=== PATIENT | female | born 2000 | race Caucasian/White ===

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

== ENCOUNTER 2021-01-02 01:52 | Emergency (ER) | payer MEDICAID, SELFPAY ==
[2021-01-02 01:53] VITALS: BP 111/66; PULSE 87; RESP 17; TEMP 35.8; O2SAT 100; BMI 33.0
--- NOTE | 2021-01-02 02:14 | EKG12_ITS ---
Test Reason : DYSRHYTHMIA Blood Pressure : / mmHG Vent. Rate : 080 BPM Atrial Rate : 080 BPM P-R Int : 150 ms QRS Dur : 094 ms QT Int : 394 ms P-R-T Axes : 052 031 031 degrees QTc Int : 454 ms Normal sinus rhythm with sinus arrhythmia Normal ECG Confirmed by THIEN ROUSSEAU, KATHLEEN ([id number]), general expeditor PAVITHRA FLOREZ ([id number]) on 01/05/2021 8:43:46 AM Referred By: DARRIUS Confirmed By:KATHLEEN NEUMANN MD
--- NOTE | 2021-01-02 02:42 | EDS_ITS ---
HPI History of Present Illness Chief Complaint: Syncope Informant: patient Onset/Context/Timing Onset: Today Narrative Narrative: Patient presents with an unresponsive episode that she is not sure whether it was syncope or seizure. Patient states that she was at a friend's house. She was getting ready to leave. As they were leaving the home she started to feel that she was going to pass out. She leaned against a wall but then fell to the ground. She states she can hear muffled voices when this happens. She often will have shaking in her left arm. She states as soon as she comes to she is able to tell people around her that she knows what happened and she just needs a minute to recover. She reportedly has had for 5 episodes of syncope over the past year or 2. She states they do seem to be getting more frequent. She does report that her biological father had a heart condition that required him to have a pacemaker defibrillator. She states she did wear a monitor and had an echocardiogram when she was 17 or so. She has not talked to her doctor since she started having more frequent syncopal episodes. PFSH PFSH Medical History no medical history no medical history Home Medications cholecalciferol (vitamin D3) 1,000 unit PO DAILY 07/24/19 [History Last Taken Unknown] Allergy/AdvReac Type Severity Reaction Status Date / Time horse dander Allergy Swelling Verified 01/02/21 01:53 Social History Smoking Status: Current every day smoker tobacco type: e-cigarettes ROS ROS ED Constitutional Constitutional ED: Denies chills or fever(s) Eyes Eyes: Denies change in vision ENT ENT ED: Denies sore throat Cardiovascular Cardiovascular: Denies chest pain, palpitations or racing heartbeat Respiratory/Chest Respiratory/Chest: Denies cough or dyspnea Gastrointestinal Gastrointestinal: Denies abdominal pain, diarrhea, nausea or vomiting Genitourinary Genitourinary ED: Denies dysuria Musculoskeletal Musculoskeletal: Denies back pain Integumentary Denies rash Neurologic Neurologic: Denies headache(s) or weakness Allergic/Immunologic Allergic/Immunologic ED: Denies urticaria EXAM Physical Exam Const Vital Signs: 01/02/21 01:53 Temperature 96.5 F L Temperature Source Temporal Pulse Rate 87 Respiratory Rate 17 Blood Pressure 111/66 Blood Pressure Mean 81 Pulse Ox 100 Oxygen Delivery Method Room Air Positive well nourished and well developed General Appearance ED: well developed HEENT Reports normocephalic and head/scalp atraumatic Eyes PERRL and EOMs intact bilaterally Neck supple Chest Wall inspection of chest normal and palpation of chest normal Resp normal respiratory effort and clear to auscultation bilaterally Cardio regular rate and regular rhythm GI normal to inspection, nondistended, normoactive bowel sounds Palpation: soft Extremity normal to inspection Neuro oriented x3 and no sensory deficits noted Sensorium / Orientation: alert Motor Exam: strength 5/5 throughout Psych mental status grossly normal Skin no rashes or lesions noted MDM MDM MDM Narrative Medical decision making narrative: Lab work, EKG, head CT ordered. Lab Data Attestation: I reviewed the patient's lab results. Labs: Laboratory Results - last 24 hr 01/02/21 01/02/21 01/02/21 03:05 03:05 03:05 WBC 9.6 RBC 4.83 Hgb 14.4 Hct 42.6 MCV 88.2 MCH 29.8 MCHC 33.8 RDW Std Deviation 39.5 RDW Coeff of Leila 12.2 Plt Count 229 MPV 10.5 Immature Gran % (Auto) 0.300 Neut % (Auto) 76.5 H Lymph % (Auto) 16.1 L Churchill % (Auto) 6.6 Eos % (Auto) 0.3 Baso % (Auto) 0.2 Absolute Neuts (auto) 7.3 Absolute Lymphs (auto) 1.54 Nucleated RBC % 0 Sodium 140 Potassium 3.3 L Chloride 107 Carbon Dioxide 26.0 Anion Gap 7 BUN 10 Creatinine 0.91 Estim Creat Clear Calc 95.90 Est GFR (MDRD) Af Amer 101 Est GFR (MDRD) Non-Af 83 BUN/Creatinine Ratio 11.0 Glucose 100 Calcium 8.8 Serum , Qual NEGATIVE Radiography Diagnostic Testing: Clinical Impression(s) from Imaging Studies Brain CT 01/02/21 02:50 IMPRESSION: No CT evidence of acute intracranial hemorrhage or injury. Individualized dose optimization techniques were used for this CT. at 0329 Reported and signed by: Jacky Rosado MD Electronically Signed: Jacky Rosado MD at 3:28 EDT Tel , Service support , EKG Initial EKG: Attestation: I personally reviewed and interpreted this EKG as follows: Interpretation: Sinus Rhythm (Sinus at 80 with sinus arrhythmia. No acute ST change.) Treatment and Re-Evaluation Comments:: Repeat evaluation patient resting comfortably. No further symptoms while the emergency room. Patient's lab work reviewed with her and potassium slightly low. This will be replaced orally here. Head CT unremarkable. EKG normal. I did discuss with her following up with her primary care physician for probable repeat Holter monitor and echocardiogram given her family history. She voices understanding and agreement. Return instructions provided. Discharge Plan Triage Chief Complaint: Syncope Other Complaint: Seizure ED Provider: Rosa Loera Dx/Rx/DC Orders Clinical Impression: Syncope Instructions: ED Fainting, Uncertain Cause Prescriptions: No Action cholecalciferol (vitamin D3) 1,000 UNIT tablet 1,000 unit PO DAILY RF: 0 Primary Care Provider: Briana Hicks Referrals: Briana Hicks MD [Primary Care Provider] - As soon as possible Disposition Disposition: Home, Self Care
--- NOTE | 2021-01-02 02:50 | CT_ITS ---
HISTORY: syncope TECHNIQUE: Multiple axial images were obtained of the brain without intravenous contrast. Coronal and sagittal reformats obtained. Bone algorithm axial images obtained. A radiation dose optimization technique was used for this scan. COMPARISON: None FINDINGS: # of images incl. paperwork: 240 Metallic nasal device noted. HEMORRHAGE: No evidence of acute intracranial hemorrhage. CEREBRAL PARENCHYMA: --Volume: Unremarkable for age. --White matter: Unremarkable. --Mass: No evidence of intracranial mass. --Stroke: Barraza-white matter differentiation is preserved. VENTRICULAR SYSTEM: No hydrocephalus. MASS EFFECT: No midline shift or focal sulci effacement. Basal cisterns are preserved. SCALP: No large scalp hematoma. CALVARIUM/SKULL BASE: No fracture. PARANASAL SINUSES: Clear. MASTOID AIR CELLS: Clear. ORBITS: Imaged portions are unremarkable. ASPECTS acute stroke score: 10 CT/Brain/Head without Contrast IMPRESSION: No CT evidence of acute intracranial hemorrhage or injury. Individualized dose optimization techniques were used for this CT. at 0329 Reported and signed by: Jacky Rosado MD Electronically Signed: Jacky Rosado MD at 3:28 EDT Tel , Service support ,
[2021-01-02 03:14] LABS: Absolute Lymphocyte Count 1.54 X10^3/uL (0.83-4.51); Absolute Neutrophil Count 7.3 X10^3/uL (2.0-7.7); Basophil# 0.02 X10^3/uL; Basophil% 0.2 % (0-1); Eosinophil# 0.03 X10^3/uL; Eosinophils% 0.3 % (0-5); Hematocrit 42.6 % (37-47); Hemoglobin 14.4 g/dL (12.0-15.0); Lymphocyte # 1.54 X10^3/ul (0.83-4.51); Lymphocyte % 16.1 % (19-41); Mean Corp Hgb Conc 33.8 g/dL (32-36); Mean Corpuscular Hgb 29.8 pg (27.0-32.0); Mean Corpuscular Volume 88.2 fL (81-99); Mean Platelet Vol. 10.5 fl (6.2-12.0); Monocyte# 0.63 X10^3/uL; Monocyte% 6.6 % (0-10); NRBC Flagged by Analyzer 0 % (0-5); Neutrophil # 7.32 X10^3/uL (2.7-7.7); Neutrophil % 76.5 % (47-70); Platelet Count 229 K/mm3 (150-450); RBC Distribution Width CV 12.2 % (11.6-14.6); RBC Distribution Width SD 39.5 fl (35.1-43.9); Red Blood Count 4.83 M/mm3 (4.2-5.4); White Blood Count 9.6 K/mm3 (4.4-11.0)
[2021-01-02 03:35] LABS: Internal QC Validated? YES +Cl - CLEAR BKGD; Pregnancy, Serum, hCG Quali. NEGATIVE Negative
[2021-01-02 03:37] LABS: Anion Gap 7 (5-15); BUN 10 mg/dL (7-18); Calcium,Total 8.8 mg/dL (8.5-10.1); Chloride 107 mmol/L (98-107); Creatinine, Serum 0.91 mg/dL (0.55-1.02); EST Glomerular Filtration Rate 83 mL/min (>60); Est Glom Filt Rate - Afr Amer 101 mL/min (>60); Glucose 100 mg/dL (74-106); Potassium 3.3 mmol/L (3.5-5.1); Sodium Level 140 mmol/L (136-145)
[2021-01-02] MEDS: Potassium Chloride Oral Tablet 20 MEQ 40 MEQ PO (04:08)
[2021-01-02 04:15] VITALS: BP 105/69; PULSE 80; RESP 20; O2SAT 98
== END 2021-01-02 04:16 | disposition home or self-care (01) ==
PROVIDERS: Emergency Provider Emergency Medicine; PCP Pediatrics
DX: R56.9 Unspecified convulsions (principal); F17.290 Nicotine dependence, other tobacco product, uncomplicated
CPT/HCPCS: 36415; 70450; 80048; 84703; 85025; 93005; 99284; A4216

== ENCOUNTER → 2022-05-14 | Outpatient (CLI) | payer MEDICAID, SELFPAY ==
[2022-05-14 17:47] LABS: Absolute Lymphocyte Count 2.31 X10^3/uL (0.83-4.51); Absolute Neutrophil Count 5.8 X10^3/uL (2.0-7.7); Basophil# 0.04 X10^3/uL; Basophil% 0.5 % (0-1); Eosinophil# 0.14 X10^3/uL; Eosinophils% 1.6 % (0-5); Hematocrit 42.6 % (37-47); Hemoglobin 14.4 g/dL (12.0-15.0); Lymphocyte # 2.31 X10^3/ul (0.83-4.51); Lymphocyte % 26.2 % (19-41); Mean Corp Hgb Conc 33.8 g/dL (32-36); Mean Corpuscular Hgb 29.2 pg (27.0-32.0); Mean Corpuscular Volume 86.4 fL (81-99); Mean Platelet Vol. 10.6 fl (6.2-12.0); Monocyte# 0.56 X10^3/uL; Monocyte% 6.3 % (0-10); NRBC Flagged by Analyzer 0 % (0-5); Neutrophil # 5.75 X10^3/uL (2.7-7.7); Neutrophil % 65.1 % (47-70); Platelet Count 316 K/mm3 (150-450); RBC Distribution Width SD 38.1 fl (35.1-43.9); Red Blood Count 4.93 M/mm3 (4.2-5.4); White Blood Count 8.8 K/mm3 (4.4-11.0)
[2022-05-14 18:10] LABS: Hemoglobin A1c 4.8 % (3.8-5.6)
[2022-05-14 18:12] LABS: ALB/GLOB Ratio 1.2 RATIO (0.9-2.4); AST(SGOT) 16 U/L (15-37); Alanine Aminotransfer ALT/SGPT 15 U/L (13-56); Albumin, Serum 4.1 g/dL (3.2-5.0); Alkaline Phosphatase 61 U/L (45-117); Anion Gap 7 (5-15); BUN 13 mg/dL (7-18); BUN/Creat Ratio 16.4 RATIO (10-20); Calcium,Total 9.5 mg/dL (8.5-10.1); Chloride 107 mmol/L (98-107); Cholesterol 164 mg/dL (200); Creatinine, Serum 0.79 mg/dL (0.55-1.02); EST Glomerular Filtration Rate 97 mL/min (>60); Est Glom Filt Rate - Afr Amer 117 mL/min (>60); Ferritin 22 ng/mL (8-252); Free T3 2.9 pg/mL (2.18-3.98); Globulin 3.4 g/dL (2.2-4.2); Glucose 89 mg/dL (74-106); High Density Lipoprotein 71 mg/dL; Iron 115 ug/dL (50-170); Potassium 4.4 mmol/L (3.5-5.1); Protein, Total 7.5 g/dL (6.4-8.2); Sodium Level 139 mmol/L (136-145); T4 Free Direct 1.15 ng/dL (0.76-1.46); Thyroid Stim Hormone (TSH) 3.43 uIU/mL (0.358-3.74); Triglycerides 68 mg/dL; Very Low Density Lipoprotein 14 mg/dL (5-40)
[2022-05-16 09:59] LABS: Vitamin B12 406 pg/mL (211-911); Vitamin D,25 Hydroxy 22.1 ng/mL
[2022-05-19 15:08] LABS: B. henselae IgM Negative titer (Neg:<1:100); B. quintana IgG Negative titer (Neg:<1:320)
[2022-05-19 18:07] LABS: Red Blood Cell Count Test/G6PD 5.08 x10E6/uL (3.77-5.28)
[2022-05-19 18:15] LABS: G6PD Quant Test 289 (155-399)
[2022-05-19 18:39] LABS: Anti-Thyroglobulin AB < 1.0 IU/mL (0.0-0.9); B. quintana IgM Negative titer (Neg:<1:100); Lyme Scn Total Ab w/Rflx Negative (Negative); Thyroglobulin, Serum Qt. 18.5 ng/mL (1.5-38.5); Thyroid Peroxidase AB 10 IU/mL (0-34)
== END | disposition home or self-care (01) ==
PROVIDERS: PCP Pediatrics; Visit Provider Nurse Practitioner Family
DX: R63.5 Abnormal weight gain (principal); Z68.41 Body mass index [BMI] 40.0-44.9, adult; R53.82 Chronic fatigue, unspecified; G89.4 Chronic pain syndrome; G47.00 Insomnia, unspecified; R55 Syncope and collapse; N94.6 Dysmenorrhea, unspecified; B60.09 Other babesiosis
CPT/HCPCS: 80053; 80061; 82306; 82607; 82728; 82955; 83036; 83540; 84432; 84439; 84443; 84481; 85025; 86376; 86611; 86618; 86800